=== PATIENT | female | born 1985 | race Caucasian/White ===

== ENCOUNTER → 2017-03-29 | Outpatient (CLI) | payer OTHER ==
--- NOTE | 2017-03-29 09:41 | KCIC ---
Bone mineral density study dated 03/29/2017. Indication: Worsening pain. History of osteogenesis imperfecta.. Findings: Lower lumbar spine: BMD (g/cm2): Total L1-L4.......... 0.699. . T-Score: Total L1-L4.................... -3.2. Z-Score: Total L1-L4 ................... -3.2. Left Hip: BMD (g/cm2): Total .......... 0.795. . T-Score: Total .................... -1.2. Z-Score: Total ................... -1.2. World Health Organization criteria for BMD interpretation classify patients as Normal (T-score at or above -1.0), Osteopenic (T-score between -1.0 and -2.5), or Osteoporotic (T-score at or below -2.5). Impression: 1. Bone marrow density values of the lumbar spine correlates with osteoporosis. The values of the left femur are within the range of osteopenia. Electronically signed by: Mika Porter MD (03/29/2017 9:38 AM) [id number]
== END | disposition home or self-care (01) ==
LOC: KCIC DEXA 09:01
PROVIDERS: ATTEND Nurse Practitioner Primary Care
DX: S22.009A Unspecified fracture of unspecified thoracic vertebra, initial encounter for closed fracture (principal); M81.0 Age-related osteoporosis without current pathological fracture; Q78.0 Osteogenesis imperfecta; X58.XXXA Exposure to other specified factors, initial encounter; Y93.89 Activity, other specified; Y92.89 Other specified places as the place of occurrence of the external cause; Y99.8 Other external cause status
CPT/HCPCS: 77080